=== PATIENT | male | born 1950 | race Caucasian/White ===

== ENCOUNTER 2016-09-29 11:51 | Emergency (ER) | payer MEDICARE, OTHER ==
[2016-09-29 12:06] VITALS: BP 160/96
--- NOTE | 2016-09-29 12:30 | EDM.PDOCBH ---
ED HPI GENERAL MEDICAL PROBLEM - General Chief Complaint: Behavioral/Psych Stated Complaint: Sent from [facility] Time Seen by Provider: 09/29/16 12:10 Source of Information: Reports: Patient, RN Notes Reviewed History Limitations: Reports: No Limitations - History of Present Illness INITIAL COMMENTS - FREE TEXT/NARRATIVE: 65 year old male presents to the ED for evaluation for possible inpatient psych admission. He initially presented to [facility] and was told to come to the ED for evaluation. The patient says that he is wanting someone to talk to because he is having trouble in his marriage. He has a history of depression and was admitted in 1987 for depression. He denies suicidal ideation , intent, or plan. He denies any previous history of suicidal thoughts or attempts. He is taking Fluoxetine and Trazadone and says that are working well for him. He's been on these medications since 1987. He does not feel he needs his medications adjusted. He says he was hoping to see Dr. Galvez today but she was unavailable. He says his appetite is poor. He is sleeping ok. He denies any physical assault. When I asked why he feels he should be admitted to the hospital he replies "[facility] said I should be admitted." I then asked what he would hope to gain by being admitted and he said "I just want someone to talk to." He denies drugs or alcohol. I received report from Enedelia our social security assessor who spoke to someone from [facility]. [facility] called her to notify us that the patient was coming. They reported that the patient was suicidal and needs inpatient treatment. They sent the patient to the ED by himself and by private vehicle. Committal paperwork has not been filled out. I placed a call to [facility] but the sales representative printing paper that saw him is currently at lunch. I left a message for them to call me back. - Related Data Allergies Allergy/AdvReac Type Severity Reaction Status Date / Time No Known Allergies Allergy Verified 09/29/16 11:59 Home Meds: Home Meds FLUoxetine HCl [Fluoxetine HCl] 80 mg PO BEDTIME 09/29/16 [History] traZODone HCl [Trazodone HCl] 150 mg PO BEDTIME 09/29/16 [History] Past Medical History Psychiatric History: Reports: Depression Social & Family History - Tobacco Use Smoking Status *Q: Never Smoker Second Hand Smoke Exposure: No - Recreational Drug Use Recreational Drug Use: No ED ROS GENERAL - Review of Systems Review Of Systems: See Below Constitutional: Reports: No Symptoms. Denies: Fever, Chills Respiratory: Reports: No Symptoms Cardiovascular: Reports: No Symptoms Psychiatric: Reports: Depression. Denies: Homicidal Ideation, Suicidal Ideation ED EXAM, BEHAVIORAL HEALTH - Physical Exam Exam: See Below Exam Limited By: No Limitations General Appearance: Alert, WD/WN, No Apparent Distress Respiratory/Chest: No Respiratory Distress, Lungs Clear, Normal Breath Sounds Cardiovascular: Regular Rate, Rhythm Neurological: Alert, CN II-XII Intact, Normal Gait, No Motor/Sensory Deficits, Oriented x 3 Psychiatric: Alert, Oriented, Flat Affect, Withdrawn, Other (Makes good eye contact. Is withdrawn and somewhat reluctant to answer questions. He replies with short 1-2 word responses, mostly yes and no answers. He clearly stated several times that he is not suicidal. I mentioned that since he is not suicidal that we could likely manage this outpatient and he replied "[place] I asked the patient why he feels he should be admitted and he did not have an answer other than "[facility] told me I needed to be." ). No: Suicidal Plan, Suicidal Thoughts, Tangential Thoughts, Auditory Hallucinations, Visual Hallucinations, Grandiose Thoughts, Paranoid Thoughts, Threatening Behavior COURSE, BEHAVIORAL HEALTH COMP - Course Vital Signs: Last Vital Signs Temp 96.7 F 09/29/16 12:02 Pulse 58 L 09/29/16 12:02 Resp BP 160/96 H 09/29/16 12:02 Pulse Ox 100 09/29/16 12:02 Re-Assessment/Re-Exam: I asked our social security assessor Enedelia to also see the patient as he is quite withdrawn and reluctant to answer questions. I spoke to Marielle Daugherty at [facility]. She is a counselor and spent about an hour with the patient today. Cesar told her that he feels hopeless and is very depressed. He had stated to her "I just don't know if I want to go on." He denied suicidal intent or plan to Marielle. He told her that he's Nondenominational and would never commit suicide due to his beliefs. Marielle would be able to see him next Monday at 3pm in follow-up. I did speak with the sewing machine bobbin winder at [facility] and Dr. Galvez could see him on Monday. Enedelia saw the patient and agrees with outpatient treatment plan. The patient was notified of Dr. Galvez's availability and his appointment with Mraielle. The patient is agreeable to this plan and will stop at [facility] when he leaves here to schedule with Dr. Galvez. He is comfortable with going home. He was encouraged to return if anything worsens or if he becomes suicidal. Discharge instructions as documented. Departure - Departure Time of Disposition: 13:01 Disposition: Home, Self-Care 01 Condition: Good Clinical Impression: Depressive disorder - Discharge Information Forms: ED Department Discharge Additional Instructions: Follow-up with Dr. Galvez. Call or stop at [facility] to schedule. [phone] Marielle Daugherty has you scheduled for a follow-up counseling session on 10/05/16 at 3pm. Return to ER with any new or worsening symptoms.
== END 2016-09-29 13:07 | disposition home or self-care (01) ==
LOC: JD.ED 11:51
DX: F32.9 Major depressive disorder, single episode, unspecified (principal)
CPT/HCPCS: 99283; 99284

== ENCOUNTER 2022-01-17 15:27 | Emergency (ER) | payer MEDICARE, OTHER ==
[2022-01-17] MEDS ORDERED: Sodium Chloride 0.9% 10 ML Syringe FLUSH PRN (15:43)
[2022-01-17] MEDS ORDERED: HYDROmorphone 0.5 MG/0.5 ML Syringe IVPUSH ONE (15:43)
[2022-01-17] MEDS ORDERED: Sodium Chloride 0.9% 1,000 ML IV SCH (15:45)
[2022-01-17] MEDS ORDERED: Ondansetron 4 MG/2 ML SDV IVPUSH ONE (15:53)
[2022-01-17] MEDS ORDERED: Iopamidol 612 MG/ML 50 ML SDV IVPUSH ONE (15:56)
[2022-01-17] MEDS ORDERED: Sodium Chloride 0.9% 10 ML Syringe FLUSH ONE (15:57)
[2022-01-17] MEDS ORDERED: Iopamidol 612 MG/ML 100 ML Bottle IVPUSH ONE (15:57)
[2022-01-17] MEDS ORDERED: Sodium Chloride 0.9% 100 ML IV SCH (16:00)
[2022-01-17 16:32] VITALS: BP 181/81; PULSE 54
== END 2022-01-17 18:45 ==
LOC: JD.ED 15:27
DX: S32.022A Unstable burst fracture of second lumbar vertebra, initial encounter for closed fracture (principal); Z88.6 Allergy status to analgesic agent; Z79.899 Other long term (current) drug therapy; Z20.822 Contact with and (suspected) exposure to COVID-19; W01.10XA Fall on same level from slipping, tripping and stumbling with subsequent striking against unspecified object, initial encounter
CPT/HCPCS: 36415; 71045; 71260; 72131; 74177; 80053; 85025; 96361; 96374; 96375; 99285; J1170; J2405; J3490; J7030; Q9967; U0002

== ENCOUNTER 2022-09-13 11:24 | Emergency (ER) | payer MEDICARE, BC ==
[2022-09-13 12:42] LABS: INFLUENZA A NAA NEGATIVE (NEGATIVE); RESPIRATORY SYNCYTIAL VIR NAA NEGATIVE (NEGATIVE)
[2022-09-13 12:45] LABS: CORONAVIRUS COVID-19 NAA POSITIVE (NEGATIVE)
[2022-09-13 13:58] VITALS: BP 119/59; PULSE 97
== END 2022-09-13 13:10 | disposition home or self-care (01) ==
LOC: JD.ED 11:24
DX: U07.1 COVID-19 (principal); G89.18 Other acute postprocedural pain; M25.552 Pain in left hip; I10 Essential (primary) hypertension; Z88.8 Allergy status to other drugs, medicaments and biological substances; Z20.822 Contact with and (suspected) exposure to COVID-19
CPT/HCPCS: 0241U; 99283

== ENCOUNTER 2024-12-13 19:29 | Emergency (ER) | payer MEDICARE, BC ==
[2024-12-13 20:32] LABS: BASOPHILS ABSOLUTE AUTO 0.0 K/mm3 (0.0-0.2); BASOPHILS PERCENT AUTO 0.5 % (0.0-1.0); EOSINOPHILS ABSOLUTE AUTO 0.1 K/mm3 (0.0-0.4); EOSINOPHILS PERCENT AUTO 2.0 % (0.0-6.0); IMMATURE GRAN ABSOLUTE AUTO 0.02 K/mm3 (0.00-0.05); IMMATURE GRAN PERCENT AUTO 0.3 % (0.0-0.4); LYMPHOCYTES ABSOLUTE AUTO 0.9 K/mm3 (1.0-4.8); LYMPHOCYTES PERCENT AUTO 14.9 % (24.0-44.0); MEAN PLATELET VOLUME 9.9 fl (9.4-12.4); MONOCYTES ABSOLUTE AUTO 0.7 K/mm3 (0.0-0.8); MONOCYTES PERCENT AUTO 11.7 % (0.0-8.0); NEUTROPHILS ABSOLUTE AUTO 4.2 K/mm3 (1.8-7.7); NEUTROPHILS PERCENT AUTO 70.6 % (41.0-71.0); NRBC ABSOLUTE 0.00 (0.00-0.02); NRBC PERCENT 0.0 % (0.0-0.2); PLATELET COUNT,PLT 205 K/mm3 (150-400); RED BLOOD CELL COUNT 3.93 M/mm3 (4.52-5.90); WHITE BLOOD CELL COUNT,WBC 5.89 K/mm3 (3.9-11.3)
[2024-12-13 21:03] LABS: A/G RATIO 1.0 (1-2); ALANINE AMINOTRANSFERASE,ALT 31 U/L (16-63); ASPARTATE AMNIOTRANSFERASE,AST 21 U/L (15-37); BILIRUBIN TOTAL 0.1 mg/dL (0.2-1.0); BLOOD UREA NITROGEN,BUN 21 mg/dL (7-18); CARBON DIOXIDE,CO2 27 mEq/L (21-32); CHLORIDE,CL 108 mEq/L (98-107); CREATININE 1.2 mg/dL (0.7-1.3); ESTIMATED GFR 63 mL/min (>60); GLUCOSE RANDOM 143 mg/dL (70-99); POTASSIUM,K 3.8 mEq/L (3.5-5.1); PROTEIN TOTAL,TP 6.2 g/dl (6.4-8.2); SODIUM,NA 144 mEq/L (136-145)
[2024-12-13 22:10] VITALS: BP 128/69; PULSE 73
== END 2024-12-13 22:00 | disposition home or self-care (01) ==
LOC: JD.ED 19:29
DX: L03.116 Cellulitis of left lower limb (principal); I10 Essential (primary) hypertension; Z88.8 Allergy status to other drugs, medicaments and biological substances; Z79.82 Long term (current) use of aspirin; Z79.899 Other long term (current) drug therapy
CPT/HCPCS: 36415; 71045; 71045-26; 73590-26-LT; 73590-LT; 73630-26-LT; 73630-LT; 80053; 83880; 85025; 93970; 93970-26; 99284